=== PATIENT | male | born 1965 | race Caucasian/White ===

== ENCOUNTER 2024-06-25 08:59 | Emergency (ER) | payer BC, MEDICAID ==
[~2024-06-25] VITALS: Ht 157.5 cm; Wt 100.0 kg
[2024-06-25 09:10] VITALS: TEMP 36.8
[2024-06-25] MEDS: MORPHINE SULFATE 4 MG/ML INJ (FOR IV/IM USE) IV STA (09:50)
[2024-06-25 10:12] LABS: BASOPHILS % 0.4 % (0.0-2.0); EOSINOPHILS % 0.4 % (0.0-5.0); HEMATOCRIT. 45.9 % (42.0-52.0); HEMOGLOBIN. 15.9 g/dL (14.0-18.0); LYMPHOCYTES % 18.4 % (20.0-50.0); MEAN CORPUSCULAR HEMOGLOBIN 30.7 pg (28.0-32.0); MEAN CORPUSCULAR HGB CONC 34.6 g/dL (31.0-37.0); MEAN CORPUSCULAR VOLUME 88.7 fL (80.0-94.0); MEAN PLATELET VOLUME 9.8 fl (7.4-10.4); MONOCYTES % 6.3 % (2.0-8.0); NEUTROPHILS % 74.5 % (40.0-76.0); PLATELET 187 x1000/uL (130-400); RED BLOOD CELL COUNT 5.18 mill/uL (4.7-6.1); WHITE BLOOD COUNT 8.3 x1000/uL (4.5-11.0)
[2024-06-25 10:19] LABS: CHLORIDE 102 mEq/L (98-107); POTASSIUM 3.9 mEq/L (3.5-5.1); SODIUM 136 mEq/L (136-145)
[2024-06-25 10:20] LABS: CARBON DIOXIDE 25 mEq/L (21-32)
[2024-06-25 10:21] LABS: CALCIUM 9.5 mg/dL (8.7-10.4)
[2024-06-25 10:25] LABS: CREATININE 0.9 mg/dL (0.6-1.3); GLUCOSE 316 mg/dL (70-105)
[2024-06-25 10:26] LABS: UREA NITROGEN BLOOD 12 mg/dL (9-23)
[2024-06-25] MEDS: MORPHINE SULFATE 4 MG/ML INJ (FOR IV/IM USE) IV ONE (11:28)
[2024-06-25] MEDS: ONDANSETRON HCL 4MG/2ML INJ IV ONE (11:58)
[2024-06-25 11:59] VITALS: TEMP 98.4; O2SAT 96
[2024-06-25] MEDS: KETAMINE HCL 50 MG/ML 10ML IV ONE (12:20)
[2024-06-25] MEDS: PROPOFOL 200MG/20ML VIAL IV ONE (12:21)
[2024-06-25] MEDS ORDERED: IBUP-2028 PO (13:16)
[2024-06-25 13:26] VITALS: BP 153/93; PULSE 83; RESP 16; O2SAT 98
== END 2024-06-25 13:31 | disposition home or self-care (01) ==
LOC: ER 08:59
DX: S82.302A Unspecified fracture of lower end of left tibia, initial encounter for closed fracture (principal); S82.142A Displaced bicondylar fracture of left tibia, initial encounter for closed fracture; S82.832A Other fracture of upper and lower end of left fibula, initial encounter for closed fracture; E11.9 Type 2 diabetes mellitus without complications; I10 Essential (primary) hypertension; Z79.899 Other long term (current) drug therapy; Z79.1 Long term (current) use of non-steroidal anti-inflammatories (NSAID); V89.2XXA Person injured in unspecified motor-vehicle accident, traffic, initial encounter; Y93.89 Activity, other specified; Y92.89 Other specified places as the place of occurrence of the external cause; Y99.8 Other external cause status
CPT/HCPCS: 80048; 85025; 36415; 71045; 73590; 73600; 93005; 27825; 99152; 99285; J3490; J2405; J2704; J2270; A4663; Z7610; 96374; 96375; A4606